=== PATIENT | male | born 1940 | race Caucasian/White ===

== ENCOUNTER → 2016-10-06 | Outpatient (CLI) | payer MEDICARE, BC ==
[~2016-10-06] VITALS: Ht 182.9 cm; Wt 96.3 kg
[~2016-10-06] MED LIST: ASPIRIN325 MG PO; COREG12.5 MG PO; COUMADIN ** IA5 MG PO; HYDROCHLOROTHIA50 MG PO; HYDROCODON-ACE1 EAC2 PO; LIPITOR80 MG PO; LOPRESSOR50 MG PO; PLAVIX75 MG PO; REVATIO 20 MG T20 MG PO; ZESTRIL30 MG PO; [UNRECOGNIZED DRUG - OTHER] PO; [UNRECOGNIZED DRUG - OTHER] PO
--- NOTE | ~2016-10-06 | ECHO ---
Transesophageal Echocardiography Report (ELVIN) Demographics Patient Name JEFF SARAH Date of Study 10/06/2016 Patient Number [id number] Visit Number [id number] Date of 1940 Room Number Gender Male Number Age 76 year(s) Referring Pipo Romero Supervisor Cereal Conchita Valentine RVT, Physician SUPERVISOR RESEARCH SHOP RDCS Physician Interpreting Annie Amaya Loom Technician Physician A MD Supervising Ordering Annie Amaya MD/MLP Physician A MD Nurse Stress Fire Extinguisher Installer Conclusions Summary Estimated EF: 50 %. The left atrium is moderately dilated. No left atrial masses including the appendage. Mild mitral regurgitation. Mild thoracic aorta scattered plaque. Procedure Type of Study ELVIN procedure:Color Doppler. Procedure Date Date: 10/06/2016 Start: 12:59 PM Study Location: Inpatient Portable Technical Quality: Adequate visualization Indications:Mitral Regurgation and Coronary artery disease. Appropriate Use Criteria: 6 Patient Status: Routine Rhythm: NSR HR: 76 bpm BP: 162/79 mmHg Findings Left Ventricle Estimated EF: 50 %. Left Atrium The left atrium is moderately dilated. No left atrial masses including the appendage. Right Atrium The right atrium is mildly dilated. No evidence of patent foramen ovale by Doppler. Mitral Valve Mild mitral regurgitation. Aortic Valve There is trivial aortic regurgitation. Tricuspid Valve Trivial tricuspid regurgitation . Pulmonic Valve Trivial pulmonic valve regurgitation. Pericardial Effusion No global pericardial effusion. Miscellaneous Mild thoracic aorta scattered plaque. Signature dtt: Vikash Valencia dtd: 10/06/16 1259 Physician Self Edit
--- NOTE | ~2016-10-06 | ESTC ---
Cardiac Perfusion Imaging Demographics Patient Name KEARA Serra Gender Male Patient Number [id number] Race Visit Number [id number] Ethnicity Corporate ID Room Number Accession Number [id number] Height 72 inches Date of 1940 Weight 215 pounds Interpreting Ciera Foley Date of study 10/06/2016 Physician MD Supervising MD/TYLERP Zachery Sampson APRN NM Technologist Elvia Kelley Ordering Physician Stress mechanical system technician Stress ECG Reading Zachery Sampson APRN Nurse Kimberly Phillips RN Physician Victor Hugo Wick RN The procedure was explained in detail to the patient. Risks, complications and alternative treatments were reviewed. Written consent was obtained. Medications Reviewed with Patient prior to Procedure. Procedure Admit Source:Other. Procedure Type: Nuclear Stress Test:Pharmacological, Lexiscan, Cardiolite Stress Test Procedure Start time: 10/06/2016 08:28 Indications: History of CAD. Risk Factors The patient risk factors include:former tobacco use and hypertension. Conclusions Impression ECG portion of the lexiscan stress test is clinically negative for ischemia by diagnostic criteria. Myocardial perfusion imaging is mildly abnormal. The images reveal a mostly fixed defect in the inferior wall consistent with infarct in the territory of the right coronary artery . Overall left ventricular systolic function was abnormal. Hypokinesis of the inferior wall noted and calculated LVEF was reduced at 46% and TID ratio is 1.14. This is a intermediate risk stress test. Stress Protocols Resting ECG Atrial fibrillation. Pre-stress physical exam: Patient assessed by Scott VELASQUEZ prior to testing. Chest - CTA Cardio - IRR, S1, S2 Predicted HR: 146 bpm HR response: Appropriate BP response: Appropriate Reason for termination:Infusion complete ECG Findings No ECG changes suggestive of ischemia. Arrhythmias No worsening rhythm abnormality. Symptoms Shortness of breath. Complications Procedure complication: None. Stress Interpretation Appropriate hemodynamic response to Lexiscan. No significant ST-T wave changes with Lexiscan. ECG portion is negative for ischemia by diagnostic criteria. Will correlate with nuclear images. Imaging Results Applied corrections - Motion correction applied High risk findings Summed scores - Summed stress score: 3 - Summed rest score: 10 - Summed difference score: -7 Stress ejection Ejection fraction:46 % EDV :154 ml ESV :83 ml Stroke volume :71 ml LV mass :163 gr Imaging Protocols Rest Stress Isotope:Tc99m Sestamibi IV Isotope: Tc99m Sestamibi IV Isotope dose:14.4 mCi Isotope dose:44.8 mCi Date:10/06/2016 07:27 Date:10/06/2016 08:53 Technique: SPECT Technique: Gated Supine SPECT Supine IV remains in place after procedure. Scan Time:45-60 minutes post injection Procedure Medications - Regadenoson (Lexiscan) 0.4 mg IV over 10-15 sec. I.V. 0.4 mg. Medications administered per verbal order and read back to physician prior to administration. Medical History Admission Data Admission date: 10/06/2016 Admission Time: 06:59 Hospital Status: Outpatient. Signatures dtt: JOSH REINA dtd: 10/06/16 0828 Physician Self Edit
[2016-10-06 13:08] LABS: INR - (THERAPEUTIC) 1.93 (0.92-1.07); PROTIME 20.4 SECONDS (9.8-11.4)
== END | disposition disaster alternative care site (69) ==
LOC: GOPD 09-29
PROVIDERS: Internal Medicine Cardiovascular Disease
DX: I25.10 Atherosclerotic heart disease of native coronary artery without angina pectoris (principal); I34.0 Nonrheumatic mitral (valve) insufficiency; I70.0 Atherosclerosis of aorta; I10 Essential (primary) hypertension; R94.39 Abnormal result of other cardiovascular function study; Z87.891 Personal history of nicotine dependence
CPT/HCPCS: A9500; J2785; J7030

== ENCOUNTER 2016-11-03 06:58 | Outpatient (CLI) | payer MEDICARE, BC ==
[~2016-11-03] VITALS: Ht 182.9 cm; Wt 98.8 kg
--- NOTE | ~2016-11-03 | CATH ---
Cardiac Diagnostic + PCI Report Demographics Patient Name KEARA Serra Gender Male Date of 1940 Age 76 year(s) Patient Number [id number] Date of Study 11/03/2016 Visit Number [id number] Room Number [id number] [place] [id number] Ht 182.88 cm Wt 97.7 kg Referring Pipo TubbsMurali Primary Physician Physician MENTAL HEALTH PRACTITIONER Performing Efstratiou Secondary Physician Physician Monique Solo MD Diagnostic Efstratiou Assisting Physician Physician Monique Solo MD Interventional Efstratiou Physician Seafood Process Worker Physician Monique Solo MD Findings and Conclusions Diagnostic Findings and Conclusion Moderate Pulmonary HTN. Diffuse moderate CAD with severe 90% stenosis of distal LAD. Diagnostic Recommendations PCI to LAD. Interventional Findings and Conclusion Successful BETTYE to LAD. Interventional Recommendations Triple therapy X 1 month then Plavix and Warfarin X 11 months. Procedure Description Informed consent was obtained in the written and verbal form after the risks and benefits were explained. The patient had no further questions and agreed to proceed. The planned puncture-incision site(s) were shaved and prepped with ChloraPrep and draped in the usual sterile manner. Conscious sedation and pain control medications were delivered by a registered nurse under physician guidance. Surface ECG rhythm, blood pressure measurement, and pulse oximetry were monitored throughout the procedure. Arterial access. The access site was infiltrated with lidocaine. The vessel was entered with the Seldinger technique. A sheath was advanced into the vessel and used for catheter placement. Venous access. The access site was infiltrated with 2% lidocaine. The vessel was entered with the Seldinger technique. A sheath was advanced into the vessel and used for catheter placement. Selective left coronary angiography. A catheter was advanced into the left coronary vessel ostium under Fluoroscopic guidance. Contrast was injected by hand. Images were obtained in multiple projections. Selective right coronary angiography. A catheter was advanced into the right coronary vessel ostium under fluoroscopic guidance. Contrast was injected by hand. Images were obtained in multiple projections. Right heart catheterization. A [place] catheter was successfully advanced to the right atrium, right ventricle, pulmonary artery, and pulmonary artery wedge position under fluoroscopic guidance. Resting hemodynamics were obtained. Measurements included pressures, arterial and venous oxygen saturation samples, and cardiac output. The [place] was removed without difficulty. Angioplasty and Stent Placement: A guiding catheter was used to intubate the vessel. A 0.14 wire was then used to cross the lesion. A balloon catheter was placed across the lesion and inflated. The balloon catheter was then removed. A Drug Eluting Stent was placed and inflated. Post placement angiograms were performed. Arterial and Venous hemostasis was achieved. The patient was transferred to a regular nursing floor via cart accompanied by a nurse. The patient left the laboratory in stable condition. Diagnostic Cath Status: Elective Interventional Cath Status: Urgent Procedure Procedure Type Diagnostic procedure:Angiography:, RHC w/Coronary Angio PCI procedure:Drug Eluting Coronary Stent:, LAD Indications: Hypertension, Pulmonary hypertension, Mitral Regurgation, CAD, Atrial fibrillation and Shortness of breath. The procedure was explained in detail to the patient. Risks, complications and alternative treatments were reviewed. Written consent was obtained. Medications Reviewed with Patient prior to Procedure. Angiographic Findings Dominance: Right Cardiac Arteries and Lesion Findings LMCA: Lesion on LMCA: Distal subsection.20% stenosis . LAD: Lesion on Dist LAD: Proximal subsection.90% stenosis 32 mm length reduced to 0%. Pre procedure ABDIRAHMAN III flow was noted. Post Procedure ABDIRAHMAN III flow was present. The guidewire cross was successful.The lesion was diagnosed as a moderate risk lesion.Culprit lesion. Treatment results:Interventional treatment was successful. Devices used - Whisper Wire .014 x 190. Number of passes: 1. - Emerge Balloon 2.25 x 15. 3 inflation(s) to a max pressure of: 14 cyndi. - Promus Premier 2.5 x 24 Stent. 2 inflation(s) to a max pressure of: 16 cyndi. - Promus Premier 3.0 x 8 Stent. 3 inflation(s) to a max pressure of: 16 cyndi. Lesion on Prox LAD: Proximal subsection.30% stenosis . Lesion on Mid LAD: Mid subsection.30% stenosis . Lesion on 1st Diag: Ostial.50% stenosis . Comments:small vessel. LCx: OM patent Lesion on Prox CX: 20% stenosis . RCA: Lesion on Dist RCA: Distal subsection.40% stenosis . Coronary Tree Procedure Data Procedure Date Date: 11/03/2016Start: 09:34 AMEnd: 11:06 AM Entry Locations - Retrograde Percutaneous access was performed through the Right Radial artery. A 6 Fr sheath was inserted. Hemostasis was successfully obtained using Mechanical Compression. Entry Comments: slender sheath used.. Closure Comments: Radial band placed by Joyce Smith. 13 mls of air in band.. - Antegrade Percutaneous access was performed through the Right Brachial vein. A 6 Fr sheath was inserted. Hemostasis was successfully obtained using Manual Compression. Closure Comments: pressure held by Gunner Smith for 10 minutes for hemostasis.. - Retrograde Percutaneous access was performed through the Right Femoral artery (Primary location). A 6 Fr sheath was inserted. Hemostasis was successfully obtained using Angio-Seal STS PLUS ([place]). Closure Comments: deployed by Dr Valencia.. Procedure Medications Order and Administration + + + +-------+ !Time !Medication !Dosage !Route ! + + + +-------+ 11/03/2016 09:09 AM !Fentanyl !50 mcg !I.V. ! + + + +-------+ 11/03/2016 09:30 AM !Versed !1 mg !I.V. ! + + + +-------+ 11/03/2016 09:37 AM !Radial Verapamil !3 mg !I.A. ! + + + +-------+ !11/03/2016 09:37 AM !Radial Heparin (ACC_3) !5000 units !I.A. ! + + + +-------+ !11/03/2016 10:06 AM !Heparin (ACC_3) !4000 units !I.V. ! + + + +-------+ !11/03/2016 10:11 AM !Integrilin (ACC_7) !20 mg !I.C. ! + + + +-------+ 11/03/2016 10:27 AM !Fentanyl !50 mcg !I.V. ! + + + +-------+ !11/03/2016 10:34 AM !Plavix (ACC_8) !600 mg !P.O. ! + + + +-------+ Devices Used - A6 Fr. Balloon Wedge Catheterwas used for:Right heart cath. - A6 Fr. BS JR 4 Diag. Catheterwas used for:Right coronary angiography.Unable to cannulate the vessel. - A6 Fr. JJ 3DRC Diag. Catheterwas used for:Right coronary angiography.Unable to cannulate the vessel. - A6 Fr. BS JL 3.5 Diag. Catheterwas used for:Left coronary angiography. - A6 Fr. BS JR 4 Diag. Catheterwas used for:Right coronary angiography.Unable to cannulate the vessel. - A6 Fr. EBU 3.75 Guide Catheterwas used for:LAD Intervention. Contrast Material - Isovue [id number] ml Fluoroscopy Time: Diagnostic: 16:12 minutes. Total: 16:12 minutes. Fluoroscopy Dose: Diagnostic: 2271 mGy. Total: 2271 mGy. Estimated Blood Loss: 30 ml. Additional [facility] PCI Information PCI Indication:PCI for high risk Non-STEMI or unstable angina. Medical History Performed Procedures and Imaging Results - Stress testing with SPECT MPIwas performed. Results were: Positive. Risk/Extent of ischemia was: Intermediate risk. History of Disease + + + + !Diagnosis !Date !Comments ! + + + + !Hypertension ! ! ! + + + + Allergies - Penicillin. Risk Factors The patient risk factors include:treated hypertension, last creatinine: 1.1 mg/dl, creatinine clearance: 81.42 ml/min and Current/Recent(w/in 1 year) tobacco use. Admission Data Admission Date: 11/03/2016 Admission Time: 06:58 AM Admit Source: Other Insurance Payors: Medicare. Admission Medications + +------+------+ + + + + !Medication !Dosage!Times !Last !Last !Administered !Comments ! ! ! !Per !Delivery !Delivery ! ! ! ! ! !Day !Date !Time ! ! ! + +------+------+ + + + + !CHERYL ! ! ! ! !Yes ! ! !Inhibitor ! ! ! ! ! ! ! !(any) ! ! ! ! ! ! ! + +------+------+ + + + + !Beta Mark! ! ! ! !Yes ! ! !(any) ! ! ! ! ! ! ! + +------+------+ + + + + !Warfarin ! ! ! ! !Yes ! ! + +------+------+ + + + + Clinical Evaluation Leading to Procedure - The patient's CAD presentation was assessed as: Stable angina. - The patient's anginal syndrome during the past two weeks was assessed as: Class II according to the [place] Cardiovascular Society Classification System (CCS). Anti-anginal medications were prescribed during the past two weeks. The medication is: Beta Blockers. - The patient has been in a state of heart failure within the past two weeks. - The patient's heart failure status was assessed as NYHA Class III. Snapshots Hemodynamics Condition: Rest O2 Consumption: Estimated: 256.25Heart Rate: 74 bpm Oxygen Saturation +--------+-----+----+ +---+ + !Location!pCO2 !pO2 !% Saturation !Hgb!O2 Content ! +--------+-----+----+ +---+ + !RA ! ! !62 !17 ! ! +--------+-----+----+ +---+ + !PA ! ! !58.8 !17 ! ! +--------+-----+----+ +---+ + !FA ! ! !88.4 !17 ! ! +--------+-----+----+ +---+ + Pressures (mmHg) +-----+ + !Site !Pressure ! +-----+ + !RA !04/04 (11) ! +-----+ + !RV !57/3 ,10 ! +-----+ + !PCW ! (23) ! +-----+ + !PA !55/21 (38) ! +-----+ + !AO !154/83 (113) ! +-----+ + Cardiac Output +------+ + + + !Method!CO (l/min) !CI (l/min/m2) !SV (ml) ! +------+ + + + !Patti !3.74 !1.7 !50.79 ! +------+ + + + Shunts Oxygen Values O2 Capacity 231.2 O2 Consumption 256.25 Flows (l/min) Qs 4.2 Vascular Resistance (dynes x sec x cm-5) + +-----+-----+-----+----+---------+-------+ !CO method !TSVR !SVR !TPVR !PVR !TPVR/TSVR!PVR/SVR! + +-----+-----+-----+----+---------+-------+ !Patti !30.11!27.23!10.04!3.79!0.33 !0.14 ! + +-----+-----+-----+----+---------+-------+ !Qp or Qs !26.81!24.25! ! ! ! ! + +-----+-----+-----+----+---------+-------+ Discharge Data Discharge Date: 11/04/2016 Hospital Status: Outpatient Signatures dtt: Vikash Valencia dtd: 11/03/16 0934 Physician Self Edit
[~2016-11-03 06:58] MED LIST changes: -ASPIRIN325 MG PO; -COREG12.5 MG PO; -LIPITOR80 MG PO; -PLAVIX75 MG PO
[2016-11-03 07:36] LABS: PTT 27 SECONDS (25-32)
[2016-11-03 07:37] LABS: INR - (THERAPEUTIC) 1.08 (0.92-1.07); PROTIME 11.4 SECONDS (9.8-11.4)
[2016-11-03 07:43] LABS: ALBUMIN 3.6 gm/dL (3.5-5.0); ANION GAP 11.7 (10.0-19.0); CREATININE 1.1 mg/dL (0.6-1.3); POTASSIUM 3.7 mMol/L (3.7-5.1); TOTAL BILIRUBIN 1.4 mg/dL (0.0-1.5); TOTAL PROTEIN 6.6 g/dL (6.0-8.4)
[2016-11-03 07:52] LABS: BASOPHIL % 0.3 %; EOSINOPHIL # 0.2 K/uL (0.0-0.5); EOSINOPHIL % 3.3 %; HEMATOCRIT 49.7 % (37.0-53.0); IMMATURE GRANULOCYTE % 0.5 %; LYMPHOCYTE # 1.2 K/uL (0.8-4.0); LYMPHOCYTE % 16.9 %; MCH 28.5 pg (27.0-34.0); MCHC 34.2 gm/dL (32.0-36.5); MCV 83.2 fl (83.0-98.0); MONOCYTE # 0.7 K/uL (0.0-1.0); MONOCYTE % 9.1 %; MPV 9.9 fl (9.4-12.4); NEUTROPHIL # (ANC) 5.1 K/uL (1.4-9.0); NEUTROPHIL % 69.9 %; NRBC % 0 /100WBC (0-0.00); PLATELET COUNT 149 K/uL (150-450); RBC 5.97 M/uL (3.50-5.50); RDW-CV 14.5 % (11.9-14.6); WBC 7.3 K/uL (4.0-11.0)
[2016-11-03 12:27] LABS: CPK 85 IU/L (35-332)
[2016-11-03 18:22] LABS: CPK 66 IU/L (35-332)
[2016-11-04 06:57] LABS: ALBUMIN 3.3 gm/dL (3.5-5.0); ANION GAP 13.6 (10.0-19.0); CALCIUM 8.6 mg/dL (8.5-10.5); CREATININE 0.9 mg/dL (0.6-1.3); POTASSIUM 3.6 mMol/L (3.7-5.1); TOTAL BILIRUBIN 1.2 mg/dL (0.0-1.5)
[2016-11-04] MEDS ORDERED: ASPIRIN325 MG PO (13:01)
[2016-11-04] MEDS ORDERED: LIPITOR80 MG PO (13:02)
[2016-11-04] MEDS ORDERED: PLAVIX75 MG PO (13:03)
[2016-11-04] MEDS ORDERED: COREG12.5 MG PO (13:03)
== END 2016-11-04 13:50 | disposition disaster alternative care site (69) ==
LOC: GPCU 06:58 → GCAT 06:58 → GPOC 07:00 → GCAT 11-04 13:50
PROVIDERS: Internal Medicine Cardiovascular Disease
PROC: 4A023N7 Measurement of Cardiac Sampling and Pressure, Left Heart, Percutaneous Approach (ICD-10-PCS; principal; 2016-11-03)
PROC: B216YZZ Fluoroscopy of Right and Left Heart using Other Contrast (ICD-10-PCS; 2016-11-03)
DX: I25.10 Atherosclerotic heart disease of native coronary artery without angina pectoris (principal); I27.2 Other secondary pulmonary hypertension; I34.0 Nonrheumatic mitral (valve) insufficiency; I48.91 Unspecified atrial fibrillation; R94.39 Abnormal result of other cardiovascular function study; R94.31 Abnormal electrocardiogram [ECG] [EKG]
CPT/HCPCS: C1725; C1760; C1769; C1874; C1887; C1894; C9600; J1327; J1644; J2001; J2250; J2270; J3010; J7030